=== PATIENT | female | born 2000 | race Caucasian/White ===

== ENCOUNTER → 2021-12-22 | Day surgery (SDC) | payer BC | LOC: CSHSDC/OP 09:45 | PROVIDERS: ATTEND Obstetrics & Gynecology | DX: O36.0190 Maternal care for anti-D [Rh] antibodies, unspecified trimester, not applicable or unspecified (principal); Z3A.00 Weeks of gestation of pregnancy not specified; Z88.0 Allergy status to penicillin ==

== ENCOUNTER 2022-02-05 13:36 | Day surgery (SDC) | payer BC ==
[2022-02-05 14:27] VITALS: BMI 30.2
[2022-02-05] MEDS ORDERED: Acetaminophen 325 MG TAB PO SCH (15:30)
[2022-02-05] MEDS ORDERED: hydrALAZINE 20 MG/ML VIAL SLOW IVP PRN (16:39)
== END 2022-02-05 16:43 | disposition home or self-care (01) ==
LOC: CSHLD/OP 13:36
PROVIDERS: ATTEND Obstetrics & Gynecology
DX: O99.891 Other specified diseases and conditions complicating pregnancy (principal); M54.50 Low back pain, unspecified; M79.604 Pain in right leg; Z3A.34 34 weeks gestation of pregnancy

== ENCOUNTER 2022-02-18 01:18 | Inpatient (IN) | payer BC ==
[2022-02-18] MEDS ORDERED: Butorphanol Tartrate 1 MG/ML VIAL SLOW IVP PRN (02:00)
[2022-02-18] MEDS ORDERED: Ibuprofen 800 MG TAB PO PRN (02:00)
[2022-02-18] MEDS ORDERED: Ondansetron PF 4 MG/2 ML Vial IVP PRN ×3 (02:00→16:03)
[2022-02-18] MEDS ORDERED: Carboprost 250 MCG/ML AMP IM PRN (02:00)
[2022-02-18] MEDS ORDERED: HYDROcodone/Acetaminophen 5/325 mg Tablet PO PRN ×2 (02:00→16:03)
[2022-02-18] MEDS ORDERED: Misoprostol 200 MCG TAB PR PRN (02:00)
[2022-02-18] MEDS ORDERED: Lidocaine 1% (PF) 30 ML VIAL SC PRN (02:00)
[2022-02-18] MEDS ORDERED: Methylergonovine 0.2 MG/ML VIAL IM PRN ×2 (02:00→16:03)
[2022-02-18] MEDS ORDERED: Acetaminophen 500 MG TAB PO PRN (02:00)
[2022-02-18] MEDS ORDERED: NS w/ Oxytocin 30 units 500 ML IV SCH ×3 (02:00→16:03)
[2022-02-18] MEDS ORDERED: Promethazine HCl 25 MG/ML VIAL IM PRN ×3 (02:00→16:03)
[2022-02-18] MEDS ORDERED: Diphenoxylate HCl/Atropine Tablet PO PRN ×2 (02:00)
[2022-02-18] MEDS ORDERED: hydrALAZINE 20 MG/ML VIAL SLOW IVP PRN ×2 (02:00→16:03)
[2022-02-18] MEDS ORDERED: Docusate 100 MG CAP PO PRN (02:00)
[2022-02-18] MEDS: Lactated Ringer's 1,000 ML IV SCH ×2 (02:06→02:45)
[2022-02-18 02:18] VITALS: BMI 30.8
[2022-02-18 02:19] LABS: Hemoglobin 12.3 g/dL (12.0-15.5); Mean Corpuscular HGB CONC 36.3 g/dL (32.0-36.0); Mean Corpuscular Hemoglobin 31.1 pg (27.0-33.0); Mean Corpuscular Volume 85.6 fl (81.6-98.3); Mean Platelet Volume 9.5 fl (7.4-10.4); Platelet Count 159 10x3/uL (150-450); RBC Distribution Width 13.3 % (11.5-14.5); Red Blood Cell (RBC) Count 3.96 10x6/uL (3.90-5.03); White Blood Cell (WBC) Count 15.7 10x3/uL (3.5-10.5)
[2022-02-18] MEDS ORDERED: Fentanyl 2 mcg/Bup 0.1% Cadd 100 ML ONE (02:29)
[2022-02-18 02:54] LABS: Hep B Surf Ag Non-Reactive S/CO (NonReactive)
[2022-02-18 02:55] LABS: HBSAg Index 0.22 S/CO (0-0.99); Syphilis Antibody Nonreactive (Nonreactive); Syphilis Antibody Index 0.03 S/CO (<1.00 Non-Reactive)
[2022-02-18] MEDS ORDERED: Naloxone HCl 0.4 mg/ml Vial IVP PRN ×2 (03:31)
[2022-02-18] MEDS ORDERED: Lactated Ringer's 500 ML IV PRN (03:31)
[2022-02-18] MEDS ORDERED: diphenhydrAMINE 50 MG/ML VIAL IVP PRN (03:31)
[2022-02-18] MEDS ORDERED: Acetaminophen 325 MG TAB PO PRN (03:31)
[2022-02-18] MEDS ORDERED: ePHEDrine Sulfate 50 MG/10 ML VIAL SLOW IVP PRN (03:31)
[2022-02-18] MEDS ORDERED: Moisturizing Cream (Eucerin) 113 GM JAR TOP PRN (03:31)
[2022-02-18] MEDS ORDERED: Fentanyl 2 mcg/Bupivacaine 0.1% Cassette 100 ML EPIDURAL SCH (03:45)
[2022-02-18] MEDS ORDERED: Communication Order-Pharmacy FS SCH (03:45)
[2022-02-18] MEDS ORDERED: Bupivacaine/Epinephrine 0.25% 30 ML VIAL ONE (08:00)
[2022-02-18 10:00] LABS: SARS-CoV-2 NAA Rapid Test Not Detected (NotDetected)
[2022-02-18] MEDS ORDERED: Benzocaine-Menthol 82.5 ML CAN TOP PRN (16:03)
[2022-02-18] MEDS ORDERED: Misoprostol 200 MCG TAB VAG PRN (16:03)
[2022-02-18] MEDS ORDERED: Measles/Mumps/Rubella 10 MCG/0.5 ML VIAL SC ONE (16:03)
[2022-02-18] MEDS ORDERED: Boostrix 0.5 ML (Tdap) VIAL IM ONE (16:03)
[2022-02-18] MEDS ORDERED: Bisacodyl 10 MG SUPP PR PRN (16:03)
[2022-02-18] MEDS ORDERED: diphenhydrAMINE 25 MG CAP PO PRN (16:03)
[2022-02-18] MEDS ORDERED: Varicella virus, LIVE 0.5 ML VIAL SC ONE (16:03)
[2022-02-18] MEDS ORDERED: Milk Of Magnesia 30 ML UDCUP PO PRN (16:03)
[2022-02-18] MEDS ORDERED: Zolpidem Tartrate 5 MG TAB PO PRN (16:03)
[2022-02-18] MEDS ORDERED: Preparation H Ointment 28 GM TUBE PR PRN (16:03)
[2022-02-18] MEDS ORDERED: Lanolin Ointment 7 GM TUBE TOP PRN (16:03)
[2022-02-18] MEDS: Ferrous Sulfate 325 MG TAB PO SCH (18:38)
[2022-02-18] MEDS: Docusate 100 MG CAP PO SCH (21:26)
[2022-02-18] MEDS: Ibuprofen 800 MG TAB PO SCH (21:26)
[2022-02-19] MEDS: Ibuprofen 800 MG TAB PO SCH ×3 (05:30→22:13)
[2022-02-19 05:42] LABS: Hemoglobin 11.1 g/dL (12.0-15.5); Mean Corpuscular HGB CONC 35.2 g/dL (32.0-36.0); Mean Corpuscular Hemoglobin 31.4 pg (27.0-33.0); Mean Platelet Volume 9.8 fl (7.4-10.4); Platelet Count 163 10x3/uL (150-450); RBC Distribution Width 13.4 % (11.5-14.5); Red Blood Cell (RBC) Count 3.54 10x6/uL (3.90-5.03); White Blood Cell (WBC) Count 17.5 10x3/uL (3.5-10.5)
[2022-02-19] MEDS: Ferrous Sulfate 325 MG TAB PO SCH (08:39)
[2022-02-19] MEDS: Docusate 100 MG CAP PO SCH (09:05)
[2022-02-19] MEDS: Prenatal Vitamin 1 TAB PO SCH (09:05)
[2022-02-20] MEDS: Ibuprofen 800 MG TAB PO SCH ×2 (06:07→13:51)
[2022-02-20] MEDS: Docusate 100 MG CAP PO SCH ×2 (07:10→07:59)
[2022-02-20 07:43] VITALS: BP 131/68; TEMP 97.7
[2022-02-20] MEDS: Prenatal Vitamin 1 TAB PO SCH (07:59)
[2022-02-20] MEDS: Ferrous Sulfate 325 MG TAB PO SCH (08:00)
== END 2022-02-20 15:30 | disposition home or self-care (01) | DRG 807 ==
LOC: CSHLD/OP 01:18 → CSHLD 02:07 → CSHPED 16:42
PROVIDERS: ADMIT Obstetrics & Gynecology; ATTEND Obstetrics & Gynecology
PROC: 10E0XZZ Delivery of Products of Conception, External Approach (ICD-10-PCS; principal; 2022-02-18)
PROC: 3E0334Z Introduction of Serum, Toxoid and Vaccine into Peripheral Vein, Percutaneous Approach (ICD-10-PCS; 2022-02-18)
DX: O42.013 Preterm premature rupture of membranes, onset of labor within 24 hours of rupture, third trimester (principal); Z37.0 Single live birth; Z3A.36 36 weeks gestation of pregnancy; O26.893 Other specified pregnancy related conditions, third trimester; Z67.41 Type O blood, Rh negative; Z20.822 Contact with and (suspected) exposure to COVID-19; Z88.0 Allergy status to penicillin; O99.892 Other specified diseases and conditions complicating childbirth; N87.9 Dysplasia of cervix uteri, unspecified; O70.0 First degree perineal laceration during delivery
CPT/HCPCS: 36415; 51702; 85027; 85461; 86780; 86850; 86870; 86900; 86901; 87340; 90384; 96372; 99285; J7120; U0002